=== PATIENT | male | born 1965 | race African-American/Black ===

== ENCOUNTER 2018-02-10 10:48 | Emergency (ER) | payer MEDICAID, OTHER ==
[~2018-02-10] VITALS: Ht 172.7 cm; Wt 87.7 kg
[~2018-02-10 10:48] MED LIST: ASPI-1182 PO; GLIP5 PO; HYDR25TA PO; IBUP-2354 PO; LISI-660 PO; METF-444 PO; SIMV5TAB6 PO
[2018-02-10 11:00] VITALS: BP 131/98
[2018-02-10 11:08] LABS: GLUCOSE,POINT OF CARE 107 MG/DL (70-110)
== END 2018-02-10 14:01 | disposition left against medical advice (07) ==
LOC: EMS 10:50
DX: R00.2 Palpitations (principal); R42 Dizziness and giddiness; Z53.21 Procedure and treatment not carried out due to patient leaving prior to being seen by health care provider
CPT/HCPCS: 93005

== ENCOUNTER 2018-05-05 10:35 | Emergency (ER) | payer MEDICAID ==
[~2018-05-05] VITALS: Ht 172.7 cm; Wt 90.9 kg
[~2018-05-05 10:35] MED LIST changes: -HYDR25TA PO; -IBUP-2354 PO; -SIMV5TAB6 PO
[2018-05-05 10:39] VITALS: BP 119/92
[2018-05-05 10:59] LABS: GLUCOSE,POINT OF CARE 375 MG/DL (70-110)
== END 2018-05-05 11:56 | disposition home or self-care (01) ==
LOC: EMS 10:35
DX: H00.011 Hordeolum externum right upper eyelid (principal); E11.9 Type 2 diabetes mellitus without complications; E78.00 Pure hypercholesterolemia, unspecified; I10 Essential (primary) hypertension; F17.210 Nicotine dependence, cigarettes, uncomplicated; F12.90 Cannabis use, unspecified, uncomplicated; F19.90 Other psychoactive substance use, unspecified, uncomplicated; Z79.82 Long term (current) use of aspirin; Z79.84 Long term (current) use of oral hypoglycemic drugs; Z79.899 Other long term (current) drug therapy